=== PATIENT | female | born 1995 | race Two or more races ===

== ENCOUNTER 2024-12-10 15:55 | Emergency (ER) | payer OTHER, MEDICAID, SELFPAY ==
[2024-12-10 16:21] VITALS: BP 161/81; PULSE 93; RESP 18; TEMP 36.9; O2SAT 98; BMI 38.2
--- NOTE | 2024-12-10 16:25 | EDNOTE_ITS ---
Upper Extremity Injury RME/HPI General Chief Complaint: Extremity Injury, Upper Stated Complaint: LEFT ARM PAIN S/P TRIP AND FALL Time Seen by Provider: 12/10/24 16:10 Source: patient, RN notes reviewed and old records reviewed Arrival date/time: 12/10/24 15:55 Mode of arrival: ambulatory Limitations: no limitations RME / HPI RME / HPI narrative: 29yof presents to ED for elbow pain s/p injury today. Patient reports trip and fall while moving a refrigerator, landed on outstretched left hand. Patient reports feeling a pop in left elbow. No deformity or numbness/tingling reported. 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 Related Data Previous Rx's ?Medication ?Instructions ?Recorded norgestimate 0.25 mg-ethinyl 1 tab PO QDAY 84 days #84 tabs 03/26/23 estradiol 35 mcg tablet benzoyl peroxide 10 % topical 1 applic topical QDAY 30 days #237 03/31/23 cleanser grams hydroquinone 4 % topical cream 1 applic topical QDAY # 28.4 grams 03/31/23 tretinoin 0.05 % topical cream 1 applic topical QHS 30 days #45 03/31/23 (Retin-A) grams ibuprofen 600 mg tablet 600 mg PO Q6H PRN pain #30 t abs 12/10/24 Allergies Allergy/AdvReac Type Severity Reaction Status Date / Time banana Allergy Anaphylaxis Verified 12/10/24 15:58 Review of Systems Review of Systems Systems Reviewed: All systems reviewed, normal except as documented Musculoskeletal Musculoskeletal: Reports arthralgias, Denies deformity, Reports joint swelling, Reports limited range of motion, Denies numbness and Denies tingling Neurologic Neurologic: Denies numbness and Denies tingling Past Medical History Past Medical History GASTROINTESTINAL: Positive Obesity ENDOCRINE: Positive Hyperthyroidism Surgical History OTHER SURGICAL HX: Denies past surgical history Social History SMOKING STATUS: Never smoker SUBSTANCE USE: does not use ALCOHOL: Current (Social) ED Exam General Limitations: Present no limitations General appearance: Present alert, in no apparent distress and other Head Head exam: Present atraumatic and normocephalic Eye Eye exam: Present normal appearance, PERRL and EOMI ENT ENT exam: Present normal exam and mucous membranes moist Neck Neck exam: Present normal inspection and full ROM Chest Chest inspection: Present normal inspection and symmetric chest wall rise Respiratory Respiratory exam: Present normal lung sounds bilaterally; Absent respiratory distress Cardiovascular Cardiovascular exam: Present regular rate and normal rhythm Extremities Exam Extremities exam: Present other (Tenderness to left elbow, no swelling. Limited ROM 2/2 pain. 2+ radial pulses, sensation intact distally) Neurological Exam Neurological exam: Present alert and oriented X3 Psychiatric Psychiatric exam: Present normal affect and normal mood Skin Skin exam: Present warm, dry, intact and normal color Course Quality Measures none Orders Category Date Time Status sling [Splint / Immobilizer] STAT Care 12/10/24 17:23 Completed XR elbow comp LT min 3V Stat Exams 12/10/24 16:25 Completed HYDROcodone*/APAP 5/325 [[place] 5/325] Med 12/10/24 16:25 Discontinued 1 tab PO X1 ONE Ibuprofen Tab [Motrin Tab] Med 12/10/24 16:25 Discontinued 600 mg PO X1 ONE Vital Signs Vital signs: Vital Signs Temperature 98.5 F 12/10/24 16:21 Pulse Rate 93 12/10/24 16:21 Respiratory Rate 18 12/10/24 16:21 Blood Pressure 161/81 H 12/10/24 16:21 Pulse Oximetry (%) 98 12/10/24 16:21 Oxygen Delivery Method Room Air 12/10/24 16:21 Extremity Injury MDM Narrative MDM Narrative:: 29yof presents to ED for elbow pain s/p injury today. Patient reports trip and fall while moving a refrigerator, landed on outstretched left hand. Patient reports feeling a pop in left elbow. No deformity or numbness/tingling reported. 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 No evidence of fracture. Patient is neurovascularly intact. Encouraged RICE therapy, motrin/tylenol prn pain. Ortho follow up as needed. Stable for dc, RTED precautions given. Patient data External records reviewed:: [facility] previous records (06/02/2023 ED visit for nausea and vomiting) Clinical information provided by:: patient Social determinants that could affect healthcare access:: none Patient has the following chronic illnesses:: obesity How is presenting disease/condition affected by chronic disease/condition?: exacerbated by Evaluation data The following diagnostics were reviewed and interpreted by me:: radiology exam (s) Lab and/or radiology exams considered but not ordered:: none Interpretation Summary: Elbow x-rays: No fracture or dislocation per my read Medications / Prescriptions Medications or Prescriptions considered but not ordered:: None Medication administrations:: Medication Administration History Discontinued Medications Hydrocodone Bitart/Acetaminophen (Hydrocodone/Apap 5/325 Tablet) 1 tab PO X1 ONE Stop: 12/10/24 16:26 Last Admin: 12/10/24 16:47 Dose: 1 tab Documented By: RITA Ibuprofen (Ibuprofen Tab 600 Mg Tablet) 600 mg PO X1 ONE Stop: 12/10/24 16:26 Last Admin: 12/10/24 16:47 Dose: 600 mg Documented By: RITA Above medications administered in ED Consultations Consultation(s) initiated? (list below): No Diagnosis Upper Extremity Injury Differential Diagnosis: other (Fracture, dislocation, sprain, strain, contusion, MSK pain) Most likely diagnosis given after review of the tests above:: Elbow sprain Admission Indicated Admission indicated?: not indicated Admission Request Was there a request for admission?: No Disposition Plan Disposition Plan: Discharge Discharge Attestation Discharge Attestation: The patient and all family members were given an opportunity to ask questions and understood the discharge instructions. Discharge instructions specifically effects, indications for sooner follow up or return to the emergency department, and the expected course of current diagnosis. Patient condition: Stable Discharge Plan Plan Patient Disposition: HOME (Self Care) Patient condition on transfer: Stable Prescriptions/Referrals Prescriptions/Med Rec: New ibuprofen 600 mg tablet 600 mg PO Q6H PRN (Reason: pain) Qty: 30 0RF No Action norgestimate-ethinyl estradiol 0.25-35 mg-mcg tablet 1 tab PO QDAY 84 Days Qty: 84 1RF tretinoin [Retin-A] 0.05 % cream 1 applic topical QHS 30 Days Qty: 45 6RF hydroquinone 4 % cream 1 applic topical QDAY Qty: 28.4 0RF benzoyl peroxide 10 % cleanser 1 applic topical QDAY 30 Days Qty: 237 1RF Rx Instructions: apply to clean face, leave for 2 mins and wash off Referrals: Nigel Franks MD [Primary Care Provider] - In 1 week Robert Rosa MD [Physician] - (As needed) Problem List Clinical Impression: Sprain of elbow, left Patient/Caregiver Discharge Instructions Education Materials: ED Sprain, Elbow Additional Instructions: Alternate ibuprofen and Tylenol every 4-6 hours as needed for pain. Ice application can help with swelling. Print Language: Nigerien Stand Alone Forms: Kelli Award Info., Work/School Release, Patient Portal Info Letter PA/MUFF WINDER Supervising Physician PA/MUFF WINDER Supervising Physician: Alyson
--- NOTE | 2024-12-10 16:25 | XR_ITS ---
Examination: Left elbow 3 views Technique: Elbow AP, oblique, lateral 3 views Exam date and time: December 10, 2024 1540 hours INDICATIONS: Patient fell today with injury to the elbow, elbow pain FINDINGS: No fracture or dislocation. No foreign body. IMPRESSION: No fracture or dislocation.
[2024-12-10] MEDS: IBUPROFEN TAB 600 MG TABLET PO (16:47)
[2024-12-10] MEDS: HYDROcodone/APAP 5/325 TABLET 1 TAB PO (16:47)
== END 2024-12-10 17:48 | disposition home or self-care (01) ==
PROVIDERS: Emergency Provider Emergency Medicine; PCP Family Medicine
DX: S53.402A Unspecified sprain of left elbow, initial encounter (principal); W01.0XXA Fall on same level from slipping, tripping and stumbling without subsequent striking against object, initial encounter
CPT/HCPCS: 73080; 99283; A4565; A9270

== ENCOUNTER 2024-12-13 14:54 | Outpatient (AMB) | payer OTHER, MEDICAID, SELFPAY ==
[2024-12-13 15:03] VITALS: BP 138/80; PULSE 101; RESP 16; TEMP 36.1; O2SAT 97; BMI 39.2
--- NOTE | 2024-12-13 15:03 | PD.RESCLINIC ---
Vital Signs 12/13/24 15:03 Height 1.7 m Height Method Stated Weight 113.568 kg Weight Measurement Method Standing Scale BMI 39.2 BP 138/80 H Blood Pressure Source Automatic Cuff Blood Pressure Location Left Upper Arm Position Sitting Respiration 16 Pulse 101 H Pulse Source Monitor Temp 97.0 F Temp Source Temporal Artery Scan Pulse Oximetry (%) 97 Oxygen Delivery Method Room Air Allergies/Meds Allergies & Medications Allergies banana Allergy (Verified 12/13/24 15:03) Anaphylaxis Medication Reconciliation norgestimate 0.25 mg-ethinyl estradiol 35 mcg tablet 1 tab PO QDAY 84 days #84 tabs 03/26/23 [Rx Confirmed 12/13/24] benzoyl peroxide 10 % topical cleanser 1 applic topical QDAY 30 days #237 grams 03/31/23 [Rx Confirmed 12/13/24] hydroquinone 4 % topical cream 1 applic topical QDAY #28.4 grams 03/31/23 [Rx Confirmed 12/13/24] tretinoin 0.05 % topical cream (Retin-A) 1 applic topical QHS 30 days #45 grams 03/31/23 [Rx Confirmed 12/13/24] ibuprofen 600 mg tablet 600 mg PO Q6H PRN pain #30 tabs 12/10/24 [Rx Confirmed 12/13/24] naproxen 500 mg tablet 500 mg PO BID PRN pain #60 tabs 12/14/24 [Rx] MA Intake Visit Data Collection New Patient or Established: Established Patient (seen at [facility] within 3 years) Seen by Clinical Staff ONLY (RN/MA): No Pain Present Currently: No Pain scale:: 0 Pain Scale Used: [place]/Numerical Commodity Specialist Required: No PCP or OBGYN visit in last 3 months: Yes Hx Now: No Do You Feel Safe at Home: Yes Authorities Contacted: N/A Smoking Status Smoking Status: Never smoker Immunization / Flu Flu Vaccine in the Last 12 Months: No Flu Vaccine Exclusion Criteria: No Exclusion Criteria Past Medical History Past Medical History GASTROINTESTINAL: Positive Obesity ENDOCRINE: Positive Hyperthyroidism Social History SMOKING STATUS: Smoking status: Never smoker SECOND HAND EXPOSURE: second hand exposure: No ALCOHOL: Alcohol Intake: Current (Social) ALCOHOL FREQUENCY: Alcohol Intake Frequency: holidays/special occasions only HOUSING: Housing: House Patient Portal Questionaires PHQ-9 PHQ-2 Over the last 2 weeks, how often have you been bothered by any of the following problems? 1. Little interest or pleasure in doing things: not at all Social History Living Situation History Lives With: Family Housing: House Tobacco History Smoking Status: Never smoker Second Hand Smoke Exposure: No Alcohol History Alcohol Intake: Current (Social) Alcohol Intake Frequency: holidays/special occasions only Substance Use History Substance Use: NONE Domestic Abuse History Do You Feel Safe at Home: Yes Review of Systems Report any current symptoms Only answer those that you have currently: Past Medical History Past Medical History Have you ever been diagnosed with any of the following: Stomache/Intestinal Problems Obesity: Yes Endocrine Problems Hyperthyroidism: Yes History of Present Illness HPI Narrative Fidelina Littlejohn is a 29-year-old female with no significant past medical history who presents to the [facility] s/p ground-level fall on 12/10. Patient states that while moving furniture, she fell onto both hands and heard a pop in her left elbow upon impact. Afterwards, she got up and extended her left upper extremity and heard a second pop sound. She then states that her left upper extremity felt numb from her elbow to her wrist with throbbing pain for approximately 30 minutes, until she arrived to [facility] ED and received pain medications. There she obtained an XR of her left elbow that did not show any fractures, dislocations, or foreign bodies and was discharged with oral pain medications. Since then, her pain has been generally well-managed and states that she mostly feels pressure in her posterior and anterior aspects of her left elbow. Also describes a pulling sensation when moving her arm and certain directions. She is able to move her wrist without difficulty but feels pain when trying to extend at her elbow. States that the bruising present has improved since incident and has had worn a sling since. Review of Systems Review of Systems Systems Reviewed: All systems reviewed, normal except as documented Objective/Exam Narrative Physical exam: General: AOx3, no acute distress, able to speak full sentences HEENT: NC/AT, mucous membranes moist, bilateral sclera anicteric Cardiovascular: regular rate and rhythm, S1/S2 present, no murmurs appreciated Pulmonary: clear to auscultation bilaterally, no rales/rhonchi/wheezes Abdominal: soft, non-tender, non-distended, no rebound/guarding, normal bowel sounds present Musculoskeletal: - LUE ROM limited due to pain, no peripheral edema - L wrist with FROM - 4/5 strength in flexion and extension at elbow Skin: bruising noted in anterior aspect of left elbow Neuro: CN II-XII intact, no focal deficits Assessment & Plan Diagnosis / Problem List (1) Sprain of elbow, left: Status: Inactive Qualifiers: Encounter type: initial encounter Qualified Code(s): S53.402A - Unspecified sprain of left elbow, initial encounter Assessment & Plan: X-ray of left elbow did not show any fractures, dislocations, or foreign bodies. Given history of audible pop on impact and second upon extension supports possible dislocation and closed reduction. In conjunction with exam findings, possible damage to cartilage versus partial ligament injury cannot be excluded and thus will order MRI for further investigation. Possible ortho consult pending results. Otherwise, recommend conservative management for now and follow-up in two weeks. Plan: ? Obtain MRI ? Conservative management (RICE protocol, OTC pain relievers) ? Follow-up in 2 weeks ? Possible Ortho consult pending MRI results Orders: Orders elbow LT wo con 12/13/24 S53.402A - Unspecified sprain of left elbow, initial encounter Additional Assessment Internal Medicine Attending Note: Case discussed with and agree with note and management plan of Resident Physician as per Resident's Note above. Issues of concern for present visit are as follows: Acute visit following a ground-level fall 3 days prior. Was moving furniture, fell onto both hands felt a pop in left elbow on impact. She extended her left arm and heard a second popping sound. Left forearm felt numb from elbow to wrist with throbbing pain for approximately 30 minutes. Was seen in the emergency department. X-ray of left elbow do not show any fracture dislocation foreign body. Patient discharged on pain medication. Pain somewhat improving, but feels pressure in the posterior and anterior aspects of the left elbow. Notes a pulling sensation with moving her arm. Feels pain with extension. Notes bruising around the medial epicondyle and medial surface of the elbow/upper arm/upper forearm. Has been keeping elbow in a sling. No dislocation noted on exam. Given the sounds that the patient heard, it is not clear if she momentarily dislocated her elbow and then reduced it, or if there is possibly a partial ligament or tendon tear. I do not palpate any contracted muscle that would suggest a complete tendon tear. Range of motion issues may stem from soft tissue swelling, but given the amount of bruising as well as mechanism of injury and current discomfort with range of motion, we will check an MRI of the left elbow. Continue sling for now. Otherwise conservative management. Ovi Ware MD Physician Billing Established Patient Established Patient: E/M Level 3-CPT 47898 Office Procedures [facility] Level of Care Nursing/Assessment Patient Status: Established Patient Nursing Assessment/Reassessment: Medication Reconciliation, Update PMH in EMR and Vital Signs Coordination of Care: Complex Care and Chronic Disease 1-5, Consent,records obtained, informed consent, Education Simp Pt/Fam and Staff clarify orders Established Patient Charge Established Patient Point Assignment: 85 Established Patient Point Charge: EP Level 3 (80-115)
== END 2024-12-13 15:53 | disposition home or self-care (01) ==
LOC: HODAHC 14:54
PROVIDERS: PCP Family Medicine; Referring Provider Family Medicine
DX: S53.402A Unspecified sprain of left elbow, initial encounter (principal); W18.30XA Fall on same level, unspecified, initial encounter
CPT/HCPCS: 99213; G0463

== ENCOUNTER → 2024-12-18 | Outpatient (CLI) | payer OTHER, MEDICAID, SELFPAY ==
--- NOTE | 2024-12-18 17:00 | XR_ITS ---
Examination: MRI left elbow, without contrast Date and time of exam: December 18, 2024 1738 hours INDICATIONS: Patient fell December 10, 2024 with injury to the elbow, elbow pain Technique and findings: Patient could not tolerate examination, lateral and axial views only obtained No occult fracture Large elbow effusion Extensive central edema in the soft tissue posterior to the elbow Intact insertion long head of the biceps into the radial tuberosity IMPRESSION: Severely limited study Recommend this patient return for diagnostic coronal images of the elbow preceded by IV conscious sedation
== END | disposition home or self-care (01) ==
DX: S53.402A Unspecified sprain of left elbow, initial encounter (principal); W19.XXXA Unspecified fall, initial encounter
CPT/HCPCS: 73221

== ENCOUNTER 2025-01-03 14:40 | Outpatient (AMB) | payer OTHER, MEDICAID, SELFPAY ==
[2025-01-03 14:47] VITALS: BP 127/84; PULSE 73; RESP 16; TEMP 36.4; O2SAT 97
--- NOTE | 2025-01-03 14:47 | PD.RESCLINIC ---
Vital Signs 01/03/25 14:47 Height 1.7 m Height Method Stated BP 127/84 Blood Pressure Source Automatic Cuff Blood Pressure Location Left Upper Arm Position Sitting Respiration 16 Pulse 73 Pulse Source Monitor Temp 97.6 F Temp Source Temporal Artery Scan Pulse Oximetry (%) 97 Oxygen Delivery Method Room Air Allergies/Meds Allergies & Medications Allergies banana Allergy (Verified 01/03/25 15:31) Anaphylaxis Medication Reconciliation norgestimate 0.25 mg-ethinyl estradiol 35 mcg tablet 1 tab PO QDAY 84 days #84 tabs 03/26/23 [Rx Confirmed 01/03/25] benzoyl peroxide 10 % topical cleanser 1 applic topical QDAY 30 days #237 grams 03/31/23 [Rx Confirmed 01/03/25] hydroquinone 4 % topical cream 1 applic topical QDAY #28.4 grams 03/31/23 [Rx Confirmed 01/03/25] tretinoin 0.05 % topical cream (Retin-A) 1 applic topical QHS 30 days #45 grams 03/31/23 [Rx Confirmed 01/03/25] ibuprofen 600 mg tablet 600 mg PO Q6H PRN pain #30 tabs 12/10/24 [Rx Confirmed 01/03/25] naproxen 500 mg tablet 500 mg PO BID PRN pain #60 tabs 12/14/24 [Rx Confirmed 01/03/25] MA Intake Visit Data Collection New Patient or Established: Established Patient (seen at [facility] within 3 years) Seen by Clinical Staff ONLY (RN/MA): No Pain Present Currently: No Pain scale:: 0 Pain Scale Used: [place]-Tee/Numerical Clinical Esthetician Required: No PCP or OBGYN visit in last 3 months: No Hx Now: No Do You Feel Safe at Home: Yes Authorities Contacted: N/A Smoking Status Smoking Status: Never smoker Immunization / Flu Flu Vaccine in the Last 12 Months: No Flu Vaccine Exclusion Criteria: No Exclusion Criteria Past Medical History Past Medical History GASTROINTESTINAL: Positive Obesity ENDOCRINE: Positive Hyperthyroidism Social History SMOKING STATUS: Smoking status: Never smoker SECOND HAND EXPOSURE: second hand exposure: No ALCOHOL: Alcohol Intake: Current (Social) ALCOHOL FREQUENCY: Alcohol Intake Frequency: holidays/special occasions only HOUSING: Housing: House Patient Portal Questionaires PHQ-9 PHQ-2 Over the last 2 weeks, how often have you been bothered by any of the following problems? 1. Little interest or pleasure in doing things: not at all Social History Living Situation History Lives With: Family Housing: House Tobacco History Smoking Status: Never smoker Second Hand Smoke Exposure: No Alcohol History Alcohol Intake: Current (Social) Alcohol Intake Frequency: holidays/special occasions only Substance Use History Substance Use: NONE Domestic Abuse History Do You Feel Safe at Home: Yes Review of Systems Report any current symptoms Only answer those that you have currently: Past Medical History Past Medical History Have you ever been diagnosed with any of the following: Stomache/Intestinal Problems Obesity: Yes Endocrine Problems Hyperthyroidism: Yes History of Present Illness HPI Narrative Fidelina Littlejohn is a 29-year-old female with no significant past medical history who presents to the [facility] for two week follow-up s/p ground-level fall on 12/10/2024. While moving furniture, she fell onto both hands and heard a pop in her left elbow upon impact. Afterwards, she got up and extended her left upper extremity and heard a second pop sound. MILAE then felt numb from elbow to wrist with throbbing pain for approximately 30 minutes until arrival to [facility] ED and received pain medications. In ED, XR of left elbow did not show any fractures, dislocations, or foreign bodies and was discharged with oral pain medications. She then followed-up at the [facility] which an MRI was ordered and showed large effusion in left elbow and extensive central edema in soft tissue posterior to elbow; long head of biceps intact into radial tuberosity; no occult fractures seen; severely limited as patient was in significant pain during imaging. 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 Patient states that her symptoms have overall improved and only takes OTC pain medications at the end of a work day. She has started to exercise with light weights and swelling and bruising have improved with RICE therapy and diclofenac gel from her parents. Does endorse point tenderness in olecranon process, pressure in posterior aspect of elbow, and that it is difficult to fully extend at the left elbow due to pain. Patient to speak with Dr. Rosa if CT of elbow with focus on radius is recommended and will follow-up in two weeks. At that time, will also discuss physical therapy. Review of Systems Review of Systems Systems Reviewed: All systems reviewed, normal except as documented Objective/Exam Narrative Physical exam: General: AOx3, no acute distress, able to speak full sentences HEENT: NC/AT, mucous membranes moist, bilateral sclera anicteric Cardiovascular: regular rate and rhythm, S1/S2 present, no murmurs appreciated Pulmonary: clear to auscultation bilaterally, no rales/rhonchi/wheezes Abdominal: soft, non-tender, non-distended, no rebound/guarding, normal bowel sounds present Musculoskeletal: - LUE ROM limited due to pain, but improved compared to prior - L wrist with FROM - 5/5 strength in flexion and extension at elbow but with pain - No paresthesia Skin: minimal bruising noted near elbow Neuro: CN II-XII intact, no focal deficits Assessment & Plan Diagnosis / Problem List (1) Sprain of elbow, left: Status: Inactive Qualifiers: Encounter type: initial encounter Qualified Code(s): S53.402A - Unspecified sprain of left elbow, initial encounter Assessment & Plan: X-ray of left elbow did not show any fractures, dislocations, or foreign bodies. Given history of audible pop on impact and second upon extension supports possible dislocation and closed reduction. In conjunction with exam findings, possible damage to cartilage versus partial ligament injury cannot be excluded and thus will order MRI for further investigation. MRI showed large effusion in left elbow and extensive central edema in soft tissue posterior to elbow; long head of biceps intact into radial tuberosity; no occult fractures seen; severely limited as patient was in significant pain during imaging. Will order CT of left elbow with focus on radius. Plan: ? CT left elbow with focus on radius ? Conservative management (RICE protocol, OTC pain relievers) ? Follow-up in 2 weeks ? Will discuss PT upon follow-up Orders: Orders CT elbow LT wo con 01/04/25 Additional Assessment Internal Medicine Attending Note: Case discussed with and agree with note and management plan of Resident Physician as per Resident's Note above. Issues of concern for present visit are as follows: 2-week follow-up for left elbow pain following ground-level fall. MRI showed large effusion and left elbow and extensive central edema in the soft tissue posterior to the elbow. No occult fracture was seen but exam was severely limited as patient was in significant pain during imaging. Review of imaging by orthopedic surgery mention possibility of radial neck fracture due to degree of effusion seen on the MRI. Patient has noted overall improvement of symptoms, still using OTC pain medication. Swelling and bruising have improved with rest/ice/compression/elevation. Still noting point tenderness at the olecranon process. Still not able to fully extend the left elbow due to pain. We will monitor for further improvement of symptoms over another 2 weeks with consideration for CT scan of the elbow with a focus on the radius. Consider referral to physical therapy as well. Ovi Ware MD Physician Billing Established Patient Established Patient: E/M Level 3-CPT 62831 Office Procedures [facility] Level of Care Nursing/Assessment Patient Status: Established Patient Nursing Assessment/Reassessment: Medication Reconciliation, Update PMH in EMR and Vital Signs Coordination of Care: Complex Care and Chronic Disease 1-5, Consent,records obtained, informed consent, Education Simp Pt/Fam, 1 Ins Authorization, Lab and Imaging orders and Staff clarify orders Established Patient Charge Established Patient Point Assignment: 115 Established Patient Point Charge: Level 3 (80-115)
== END 2025-01-03 15:30 | disposition home or self-care (01) ==
LOC: HODAHC 14:40
PROVIDERS: Supervising Provider Internal Medicine
DX: M25.422 Effusion, left elbow (principal); S53.402D Unspecified sprain of left elbow, subsequent encounter; W18.30XD Fall on same level, unspecified, subsequent encounter
CPT/HCPCS: 99213; G0463

== ENCOUNTER → 2025-01-18 | Outpatient (CLI) | payer OTHER, MEDICAID, SELFPAY ==
--- NOTE | 2025-01-18 | XR_ITS ---
Examination: CT left elbow, without contrast. 2-D sagittal reconstructions. 2-D coronal reconstructions. 3-D reconstructions. Date and time of exam:January 18, 2025 at 1609 hours INDICATIONS: Patient fell last month with injury of the elbow, elbow pain CTDI: vol (mGy):5.3 DLP: (mGycm):112 Technique: Multiple 1.25 mm axial sections of the left elbow without intravenous contrast have been obtained. 2-D sagittal and coronal reconstructions have been obtained. 3-D reconstructions have been obtained. Low dose protocols were performed. One or more of the following dose reduction techniques were used; automated exposure control, adjustment of the mA and/or KV according to patient size, use of iterative reconstruction technique. Findings: Distal humerus including humeral condyles intact Radial head and neck and proximal shaft are intact Proximal ulna including ulnar notch intact No fractures No dislocation No ossified joint bodies Soft tissue contusion in the subcutaneous fatty tissue dorsum of the elbow, no soft tissue hematoma IMPRESSION: No fractures Soft tissue contusion in the subcutaneous fatty tissue dorsum of the elbow
== END | disposition home or self-care (01) ==
LOC: CCTX 15:58
DX: S50.02XA Contusion of left elbow, initial encounter (principal); W19.XXXA Unspecified fall, initial encounter
CPT/HCPCS: 73200

== ENCOUNTER 2025-02-07 15:06 | Outpatient (AMB) | payer OTHER, MEDICAID, SELFPAY ==
[2025-02-07 15:38] VITALS: BP 128/72; PULSE 78; RESP 18; TEMP 36.6; O2SAT 97; BMI 39.3
--- NOTE | 2025-02-07 15:38 | ACNOTE_ITS ---
Vital Signs 02/07/25 15:38 Height 1.7 m Height Method Stated Weight 113.625 kg Weight Measurement Method Standing Scale BMI 39.3 BP 128/72 Blood Pressure Source Automatic Cuff Blood Pressure Location Right Upper Arm Position Sitting Respiration 18 Pulse 78 Pulse Source Monitor Temp 97.8 F Temp Source Temporal Artery Scan Pulse Oximetry (%) 97 Oxygen Delivery Method Room Air Allergies/Meds Allergies & Medications Allergies banana Allergy (Verified 02/07/25 15:39) Anaphylaxis Medication Reconciliation norgestimate 0.25 mg-ethinyl estradiol 0.035 mg tablet 1 tab PO QDAY 84 days #84 tabs 03/26/23 [Rx Confirmed 02/07/25] benzoyl peroxide 10 % topical cleanser 1 applic topical QDAY 30 days #237 grams 03/31/23 [Rx Confirmed 02/07/25] hydroquinone 4 % topical cream 1 applic topical QDAY #28.4 grams 03/31/23 [Rx Confirmed 02/07/25] tretinoin 0.05 % topical cream (Retin-A) 1 applic topical QHS 30 days #45 grams 03/31/23 [Rx Confirmed 02/07/25] ibuprofen 600 mg tablet 600 mg PO Q6H PRN pain #30 tabs 12/10/24 [Rx Confirmed 02/07/25] naproxen 500 mg tablet 500 mg PO BID PRN pain #60 tabs 12/14/24 [Rx Confirmed 02/07/25] MA Intake Visit Data Collection New Patient or Established: Established Patient (seen at [facility] within 3 years) Seen by Clinical Staff ONLY (RN/MA): No Pain Present Currently: No Pain scale:: 0 Pain Scale Used: [place]ee/Numerical Pin Maker Required: No PCP or OBGYN visit in last 3 months: No Hx Now: No Do You Feel Safe at Home: Yes Authorities Contacted: N/A Smoking Status Smoking Status: Never smoker Immunization / Flu Flu Vaccine in the Last 12 Months: No Flu Vaccine Exclusion Criteria: No Exclusion Criteria Past Medical History Past Medical History GASTROINTESTINAL: Positive Obesity ENDOCRINE: Positive Hyperthyroidism Social History SMOKING STATUS: Smoking status: Never smoker SECOND HAND EXPOSURE: second hand exposure: No ALCOHOL: Alcohol Intake: Current (Social) ALCOHOL FREQUENCY: Alcohol Intake Frequency: holidays/special occasions only HOUSING: Housing: House Patient Portal Questionaires PHQ-9 PHQ-2 Over the last 2 weeks, how often have you been bothered by any of the following problems? 1. Little interest or pleasure in doing things: not at all Social History Living Situation History Lives With: Family Housing: House Tobacco History Smoking Status: Never smoker Second Hand Smoke Exposure: No Alcohol History Alcohol Intake: Current (Social) Alcohol Intake Frequency: holidays/special occasions only Substance Use History Substance Use: NONE Domestic Abuse History Do You Feel Safe at Home: Yes Review of Systems Report any current symptoms Only answer those that you have currently: Past Medical History Past Medical History Have you ever been diagnosed with any of the following: Stomache/Intestinal Problems Obesity: Yes Endocrine Problems Hyperthyroidism: Yes History of Present Illness HPI Wang Littlejohn is a 29-year-old female with no significant past medical history who presents to the [facility] for follow-up s/p ground-level fall on 12/10/2024. While moving furniture, she fell onto both hands and heard a pop in her left elbow upon impact. Afterwards, she got up and extended her left upper extremity and heard a second pop sound. MILAE then felt numb from elbow to wrist with throbbing pain for approximately 30 minutes until arrival to [facility] ED and received pain medications. In ED, XR of left elbow did not show any fractures, dislocations, or foreign bodies and was discharged with oral pain medications. 01/03: Follow-up for which an MRI was ordered and showed large effusion in left elbow and extensive central edema in soft tissue posterior to elbow; long head of biceps intact into radial tuberosity; no occult fractures seen; severely limited as patient was in significant pain during imaging. 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 Patient states that her symptoms have overall improved and only takes OTC pain medications at the end of a work day. She has started to exercise with light weights and swelling and bruising have improved with RICE therapy and diclofenac gel from her parents. Does endorse point tenderness in olecranon process, pressure in posterior aspect of elbow, and that it is difficult to fully extend at the left elbow due to pain. 02/07: Follow-up after obtaining CT of the elbow that showed soft tissue contusion in subcutaneous fatty tissue in dorsum of elbow. States that she has been able to go to the gym and continue to workout with minimal difficulty. She no longer requires OTC pain medications and can fully extend at the elbow. Does endorse occasional pressure-like feeling around the elbow but otherwise does not have any complaints at this time. Given that patient has returned to her baseline, stated that she can call/set up an appointment as needed but will no longer need to follow-up. Objective/Exam Narrative Physical exam: General: AOx3, no acute distress, able to speak full sentences HEENT: NC/AT, mucous membranes moist, bilateral sclera anicteric Cardiovascular: regular rate and rhythm, S1/S2 present, no murmurs appreciated Pulmonary: clear to auscultation bilaterally, no rales/rhonchi/wheezes Abdominal: soft, non-tender, non-distended, no rebound/guarding, normal bowel sounds present Musculoskeletal: - LUE FROM - L wrist with FROM - 5/5 strength in flexion and extension at elbow but with pain - No paresthesia Skin: minimal bruising noted near elbow Neuro: CN II-XII intact, no focal deficits Assessment & Plan Diagnosis / Problem List (1) Sprain of elbow, left: Status: Inactive Qualifiers: Encounter type: initial encounter Qualified Code(s): S53.402A - Unspecified sprain of left elbow, initial encounter Assessment & Plan: X-ray of left elbow did not show any fractures, dislocations, or foreign bodies. Given history of audible pop on impact and second upon extension supports possible dislocation and closed reduction. In conjunction with exam findings, possible damage to cartilage versus partial ligament injury cannot be excluded. MRI ordered for further evaluation showed large effusion in left elbow and extensive central edema in soft tissue posterior to elbow; long head of biceps intact into radial tuberosity; no occult fractures seen; severely limited as patient was in significant pain during imaging. CT of left elbow showed contusion in subcutaneous tissue but no signs of sprains, fractures, or hematomas. Given that patient has largely returned to her baseline, she will no longer need to follow-up. Plan: ? No longer needs to follow-up at [facility] clinic ? Call/set-up an appointment as needed in the future Office Procedures [facility] Level of Care Nursing/Assessment Patient Status: Established Patient Nursing Assessment/Reassessment: Medication Reconciliation, Update PMH in EMR and Vital Signs Coordination of Care: Complex Care and Chronic Disease 1-5, Consent,records obtained, informed consent, Education Simp Pt/Fam and Staff clarify orders Established Patient Charge Established Patient Point Assignment: 85 Established Patient Point Charge: EP Level 3 (80-115)
== END 2025-02-07 15:47 | disposition home or self-care (01) ==
LOC: HODAHC 15:06
PROVIDERS: Supervising Provider Internal Medicine
DX: S53.402D Unspecified sprain of left elbow, subsequent encounter (principal); W18.30XD Fall on same level, unspecified, subsequent encounter
CPT/HCPCS: 99213; G0463